=== PATIENT | male | born 1965 | race Caucasian/White ===

== ENCOUNTER 2019-05-03 21:27 | Emergency (ER) | payer OTHER ==
--- OUTSIDE RECORDS SUMMARY | 2019-05-03 21:32 | XMS REPORT ---
:1965 Author Organization eClinicalWorks Care Team Providers Name Role Phone Gordon Covarrubias Provider Role Unavailable Allergies, Adverse Reactions, Alerts Substance Reaction Event Type N.K.D.A. Info Not Available Non Drug Allergy Problems Problem Type Condition Code Onset Dates Condition Status Problem Intention tremor G25.2 Active Problem Bipolar 1 disorder F31.9 Active Assessment Intention tremor G25.2 Active Assessment Bipolar 1 disorder F31.9 Active Medications Medication Code Code Instructions Start End Status Dosage System Date Date [place] [facility] 51979853746 300 MG Oral Active TK 1 C PO Carbonate QAM AND TK 2 C PO QPM Propranolol HCl [facility] 88492695803 40 MG Orally Active 1 tablet Once a day Oxcarbazepine [facility] 54090894863 600 MG Oral Active TK 1 T PO HS Seroquel [facility] 55328277275 25 MG Orally Active 1 tablet Once a day Depakote [facility] [id number] 500 MG Orally Active as directed BID Results No Known Results Summary Purpose eClinicalWorks Submission
--- NOTE | 2019-05-03 23:14 | ER ---
Nurse's Notes [facility] Name: Shmuel Aquino Age: 53 yrs Sex: Male : 1965 Arrival Date: 05/03/2019 Time: 21:32 Bed 23 Private MD: Diagnosis: Acute upper respiratory infection, unspecified Presentation: 05/03 22:24 Presenting complaint: Patient states: cough, cold, congestion, chills for approx 1 bb week. Transition of care: patient was not received from another setting of care. Onset of symptoms was April 24, 2019. Risk Assessment: Do you want to hurt yourself or someone else? Patient reports no desire to harm self or others. Initial Sepsis Screen: Does the patient meet any 2 criteria? No. Patient's initial sepsis screen is negative. Does the patient have a suspected source of infection? No. Patient's initial sepsis screen is negative. Care prior to arrival: None. 22:24 Method Of Arrival: Ambulatory bb 22:24 Acuity: CHICHI 4 bb Historical: - Allergies: 22:28 No Known Allergies; bb - Home Meds: 22:28 Depakote ER Oral [Active]; [place] Carbonate Oral [Active]; Propranolol Oral [Active]; bb Seroquel Oral [Active]; - PMHx: 22:28 Anxiety; Depression; Bipolar disorder; bb - Immunization history:: Adult Immunizations not up to date. - Social history:: Smoking status: Patient uses tobacco products, smokes one pack cigarettes per day. - Ebola Screening: : Patient negative for fever greater than or equal to 101.5 degrees Fahrenheit, and additional compatible Ebola Virus Disease symptoms Patient denies exposure to infectious person Patient denies travel to an Ebola-affected area in the 21 days before illness onset. Screenin:00 Abuse screen: Denies threats or abuse. Nutritional screening: No deficits noted. tr5 Tuberculosis screening: No symptoms or risk factors identified. Fall Risk None identified. Assessment: 23:00 General: Appears uncomfortable, Behavior is calm, cooperative, appropriate for age. tr5 General: Reports chills for. Pain: Complains of pain in face. Neuro: Level of Consciousness is awake, alert, obeys commands, Oriented to person, place, time, Arts Administrator are equal bilaterally Moves all extremities. Cardiovascular: Heart tones present. Respiratory: Reports cough that is. GI: Abdomen is round. : No signs and/or symptoms were reported regarding the genitourinary system. EENT: No signs and/or symptoms were reported regarding the EENT system. Derm: No signs and/or symptoms reported regarding the dermatologic system. Musculoskeletal: No signs and/or symptoms reported regarding the musculoskeletal system. Vital Signs: 22:27 BP 135 / 67; Pulse 75; Resp 17; Temp 98.4; Pulse Ox 98% ; Weight 95.25 kg; Height 6 ft. bb 2 in. (187.96 cm); Pain 5/10; 22:27 Body Mass Index 26.96 (95.25 kg, 187.96 cm) bb ED Course: 21:32 Patient arrived in ED. ds1 21:44 Cary Briceno FNP-C is [facility]. kb 21:44 Leroy Silva MD is Attending Physician. kb 22:25 Triage completed. bb 22:28 Arm band placed on right wrist. bb 22:58 Freddy Meier, RN is Primary Nurse. tr5 23:38 No provider procedures requiring assistance completed. Patient did not have IV access tr5 during this emergency room visit. 23:40 Bed in low position. Call light in reach. Side rails up X 1. tr5 Administered Medications: No medications were administered Outcome: 23:14 Discharge ordered by . kb 23:38 Discharged to home ambulatory. tr5 23:38 Condition: stable 23:38 Discharge instructions given to patient, family, Instructed on discharge instructions, follow up and referral plans. Demonstrated understanding of instructions, follow-up care. 23:40 Patient left the ED. tr5 Signatures: Cary Briceno FNP-C FNP-Ckb Sanford, Demi ds1 Gabi Stein RN RN bb Freddy Meier, DANO RN tr5
--- NOTE | 2019-05-03 23:15 | EDPHYS ---
Physician Documentation [facility] Name: Shmuel Aquino Age: 53 yrs Sex: Male : 1965 Arrival Date: 05/03/2019 Time: 21:32 Bed 23 Private MD: ED Physician Leroy Silva HPI: 05/03 23:02 This 53 yrs old Male presents to ER via Ambulatory with complaints of Cough. kb 23:02 The patient or guardian reports cough, that is intermittent, described as moderate, kb with no sputum. Onset: The symptoms/episode began/occurred 1 week(s) ago. Severity of symptoms: At their worst the symptoms were moderate, in the emergency department the symptoms are unchanged. Modifying factors: The symptoms are alleviated by nothing, the symptoms are aggravated by nothing. Associated signs and symptoms: Pertinent positives: rhinorrhea. The patient has not experienced similar symptoms in the past. The patient has not recently seen a physician. Historical: - Allergies: 22:28 No Known Allergies; bb - Home Meds: 22:28 Depakote ER Oral [Active]; [place] Carbonate Oral [Active]; Propranolol Oral [Active]; bb Seroquel Oral [Active]; - PMHx: 22:28 Anxiety; Depression; Bipolar disorder; bb - Immunization history:: Adult Immunizations not up to date. - Social history:: Smoking status: Patient uses tobacco products, smokes one pack cigarettes per day. - Ebola Screening: : Patient negative for fever greater than or equal to 101.5 degrees Fahrenheit, and additional compatible Ebola Virus Disease symptoms Patient denies exposure to infectious person Patient denies travel to an Ebola-affected area in the 21 days before illness onset. ROS: 23:00 Neck: Negative for injury, pain, and swelling, Cardiovascular: Negative for chest pain, kb palpitations, and edema, Abdomen/GI: Negative for abdominal pain, nausea, vomiting, diarrhea, and constipation, Back: Negative for injury and pain, MS/Extremity: Negative for injury and deformity, Skin: Negative for injury, rash, and discoloration, Neuro: Negative for headache, weakness, numbness, tingling, and seizure. 23:00 Constitutional: Positive for chills, fever. 23:00 ENT: Positive for rhinorrhea. 23:00 Respiratory: Positive for cough, Negative for dyspnea on exertion, hemoptysis, orthopnea, pleurisy, shortness of breath, sputum production, wheezing. Exam: 23:02 Constitutional: This is a well developed, well nourished patient who is awake, alert, kb and in no acute distress. Head/Face: Normocephalic, atraumatic. ENT: Nares patent. No nasal discharge, no septal abnormalities noted. Tympanic membranes are normal and external auditory canals are clear. Oropharynx with no redness, swelling, or masses, exudates, or evidence of obstruction, uvula midline. Mucous membranes moist. Neck: Trachea midline, no thyromegaly or masses palpated, and no cervical lymphadenopathy. Supple, full range of motion without nuchal rigidity, or vertebral point tenderness. No Meningismus. Chest/axilla: Normal chest wall appearance and motion. Nontender with no deformity. No lesions are appreciated. Cardiovascular: Regular rate and rhythm with a normal S1 and S2. No gallops, murmurs, or rubs. Normal PMI, no JVD. No pulse deficits. Respiratory: Lungs have equal breath sounds bilaterally, clear to auscultation and percussion. No rales, rhonchi or wheezes noted. No increased work of breathing, no retractions or nasal flaring. Abdomen/GI: Soft, non-tender, with normal bowel sounds. No distension or tympany. No guarding or rebound. No evidence of tenderness throughout. Skin: Warm, dry with normal turgor. Normal color with no rashes, no lesions, and no evidence of cellulitis. MS/ Extremity: Pulses equal, no cyanosis. Neurovascular intact. Full, normal range of motion. Neuro: Awake and alert, GCS 15, oriented to person, place, time, and situation. Cranial nerves II-XII grossly intact. Motor strength 5/5 in all extremities. Sensory grossly intact. Cerebellar exam normal. Normal gait. Vital Signs: 22:27 BP 135 / 67; Pulse 75; Resp 17; Temp 98.4; Pulse Ox 98% ; Weight 95.25 kg; Height 6 ft. bb 2 in. (187.96 cm); Pain 5/10; 22:27 Body Mass Index 26.96 (95.25 kg, 187.96 cm) bb MDM: 22:24 Patient medically screened. kb 23:00 Data reviewed: vital signs, nurses notes. Data interpreted: Pulse oximetry: on room air barbara is 98 %. Interpretation: normal. Counseling: I had a detailed discussion with the patient and/or guardian regarding: the historical points, exam findings, and any diagnostic results supporting the discharge/admit diagnosis, lab results, the need for outpatient follow up, a family practitioner, to return to the emergency department if symptoms worsen or persist or if there are any questions or concerns that arise at home. 05/03 22:24 Order name: Flu; Complete Time: 23:13 kb 05/03 22:24 Order name: Strep; Complete Time: 23:13 kb 05/03 23:08 Order name: Throat Culture EDMS Administered Medications: No medications were administered Disposition: 05/03/19 23:14 Discharged to Home. Impression: Acute upper respiratory infection, unspecified. - Condition is Stable. - Discharge Instructions: Upper Respiratory Infection, Adult, Qyvy-lq-[id number], Viral Respiratory Infection, [id number]-[id number]-Vtzf. - Medication Reconciliation Form, Thank You Letter, Antibiotic Education, Prescription Opioid Use form. - Follow up: Emergency Department; When: As needed; Reason: Worsening of condition. Follow up: Private Physician; When: 2 - 3 days; Reason: Recheck today's complaints, Continuance of care, Re-evaluation by your physician. Addendum: 05/11/2019 07:22 Co-signature as Attending Physician, Leroy Silva MD I agree with the assessment and c macedo plan of care. Signatures: Dispatcher [employer] EDMA Cary Briceno, MACHINE EGG WASHER-C MACHINE EGG WASHER-Ckb Leroy Silva MD MD cha Ballard, Brenda, RN RN Freddy Sharp RN RN tr5 Corrections: (The following items were deleted from the chart) 05/03 23:40 23:14 05/03/2019 23:14 Discharged to Home. Impression: Acute upper respiratory tr5 infection, unspecified. Condition is Stable. Discharge Instructions: Upper Respiratory Infection, Adult, Jisg-cy-Aivn, Viral Respiratory Infection, Qpzr-Ax-Njdu. Forms are Medication Reconciliation Form, Thank You Letter, Antibiotic Education, Prescription Opioid Use. Follow up: Emergency Department; When: As needed; Reason: Worsening of condition. Follow up: Private Physician; When: 2 - 3 days; Reason: Recheck today's complaints, Continuance of care, Re-evaluation by your physician. kb
[2019-05-04 01:01] VITALS: BP 135/67; TEMP 98.4; O2SAT 98
== END 2019-05-03 23:40 | disposition home or self-care (01) ==
LOC: ER 21:27
DX: J06.9 Acute upper respiratory infection, unspecified (principal); F31.9 Bipolar disorder, unspecified; F17.210 Nicotine dependence, cigarettes, uncomplicated
CPT/HCPCS: 87070; 87081; 87804; 99281

== ENCOUNTER 2020-01-27 12:55 | Emergency (ER) | payer OTHER ==
--- OUTSIDE RECORDS SUMMARY | 2020-01-27 12:56 | XMS REPORT | Continuity of Care Document ---
:[address] [facility] t Address [address] [place] [address] Care Team Providers Name Role Phone Unavailable Unavailable Unavailable Problems Condition Condition Condition Status Onset Resolution Last Treating Co mments Source Name Details Category Date Date Treatment Clinician Date Intention Intention Diagnosis Active C [facility] tremor tremor [facility] Bipolar 1 Bipolar [address] disorder disorder [facility] Allergies, Adverse Reactions, Alerts This patient has no known allergies or adverse reactions. Medications Ordered Filled Start Stop Current Ordering Indication Dosage Frequency Signature Comments Components Source Medication Medication Date Date Medication? Clinician (SIG) Name Name Propranolol Propranolol Yes Gordno [address] [facility] HCl HCl [facility] Depakote Depakote Yes Gordon as [facility] directed [facility] P[place]ra Piedra Yes Gordon TK [address] C [address] [facility] Carbonate Carbonate Marci QAM AND TK [facility] C PO QPM [facility] Oxcarbazepi Oxcarbazepi Yes Gordon ACKERMAN [address] [facility] ne ne Marci HS [facility] Seroquel Seroquel Yes Gordon [address] [facility]ci [facility] Procedures This patient has no known procedures. Encounters Start End Encounter Admission Attending Care Care Encounter Source Date/Time Date/Time Type Type Clinicians Facility Department ID 2019-01-20 2019-01-20 Outpatient [facility] [id number] [facility] 08:30:00 08:30:00 [facility] 2018-06-12 2018-06-12 Outpatient [facility] [id number] [facility] 09:30:00 09:30:00 [facility] Medicine Outpati ent Clinics Results This patient has no known results.
[2020-01-27 13:37] LABS: Absolute Lymphocytes (CBC) 2.7 K/uL (0.7-4.9); Basophils % 0.8 % (0-1.3); Hematocrit 46.4 % (39.6-49.0); Lymphocytes % 31.1 % (15.3-44.8); MPV 10.7 fL (7.6-11.3); RBC Red Blood Cell Count 5.29 M/uL (4.33-5.43)
[2020-01-27 13:38] LABS: Protime INR 0.93
[2020-01-27 14:00] LABS: ALT/SGPT 69 U/L (12-78); AST/SGOT 29 U/L (15-37); Albumin 3.5 g/dL (3.4-5.0); Alkaline Phosphatase 103 U/L (45-117); BUN Blood Urea Nitrogen 20 mg/dL (7-18); Bicarbonate 29 mmol/L (21-32); Bilirubin Direct 0.1 mg/dL (0-0.2); Bilirubin Total 0.5 mg/dL (0.2-1.0); Glucose Level 110 mg/dL (74-106); Magnesium 2.1 mg/dL (1.8-2.4); NT PRO-BNP 39 pg/mL (<125); Protein, Total 8.1 g/dL (6.4-8.2); Sodium Level 140 mmol/L (136-145); Troponin (Emerg Dept Use Only) < 0.02 ng/mL (0.0-0.045)
--- NOTE | 2020-01-27 14:11 | RAD REPORT ---
EXAM DESCRIPTION: RAD - Chest Single View - 01/27/2020 1:59 pm CLINICAL HISTORY: CHEST PAIN Chest pain. COMPARISON: Chest Pa And Lat (2 Views) dated 07/16/2017 FINDINGS: Portable technique limits examination quality. Calcified granuloma is present in the right apex. The lungs otherwise clear. The heart is normal in s ize. No displaced fractures. IMPRESSION: No acute intrathoracic process suspected.
--- NOTE | 2020-01-27 14:16 | ER ---
Nurse's Notes [facility] Name: Shmuel Aquino Age: 54 yrs Sex: Male : 1965 Arrival Date: 01/27/2020 Time: 12:56 Bed 8 Private MD: Diagnosis: Chest pain, unspecified Presentation: 01/26 13:04 Chief complaint: Patient states: Chest pain on/off x 1 year. Has 2 episodes in a month. ca1 Stabbing pain, SOB with CP. states, "I just got tired of having this pain so I want it checked". Denies Hx of Heart attacks. Denies Hx of injury to the chest. Coronavirus screen: Client denies travel out of the [place] in the last 14 days. At this time, the client does not indicate any symptoms associated with coronavirus-19. Ebola Screen: Patient negative for fever greater than or equal to 101.5 degrees Fahrenheit, and additional compatible Ebola Virus Disease symptoms Patient denies exposure to infectious person. Patient denies travel to an Ebola-affected area in the 21 days before illness onset. No symptoms or risks identified at this time. Initial Sepsis Screen: Does the patient meet any 2 criteria? No. Patient's initial sepsis screen is negative. Does the patient have a suspected source of infection? No. Patient's initial sepsis screen is negative. Risk Assessment: Do you want to hurt yourself or someone else? Patient reports no desire to harm self or others. Onset of symptoms was January 27, 2020. 13:04 Method Of Arrival: Ambulatory ca1 13:04 Acuity: CHICHI 3 ca1 Historical: - Allergies: 13:08 No Known Allergies; ca1 - Home Meds: 13:08 Depakote ER Oral [Active]; Propranolol Oral [Active]; quetiapine oral oral [Active]; ca1 Seroquel Oral [Active]; - PMHx: 13:08 Anxiety; Depression; Bipolar disorder; ca1 - PSHx: 13:08 None; ca1 - Immunization history:: Adult Immunizations up to date. - Social history:: Smoking status: Patient reports the use of cigarette tobacco products, smokes two packs cigarettes per day. Screenin:10 Abuse screen: Denies threats or abuse. Denies injuries from another. Nutritional jl7 screening: No deficits noted. Tuberculosis screening: No symptoms or risk factors identified. Fall Risk IV access (20 points). Total Mccabe Fall Scale indicates No Risk (0-24 pts). Assessment: 13:10 General: Appears in no apparent distress. uncomfortable, Behavior is calm, cooperative, jl7 appropriate for age. Pain: Complains of pain in anterior aspect of left upper chest Pain does not radiate. Pain currently is 2 out of 10 on a pain scale. at worst was 10 out of 10 on a pain scale. Pain began x 1 year Is intermittent. Neuro: Level of Consciousness is awake, alert, obeys commands, Oriented to person, place, time, situation. Cardiovascular: Patient's skin is warm and dry. Rhythm is regular. Respiratory: Airway is patent Respiratory effort is even, unlabored, Respiratory pattern is regular, symmetrical. GI: No signs and/or symptoms were reported involving the gastrointestinal system. : No signs and/or symptoms were reported regarding the genitourinary system. Derm: Skin is pink, warm \\T\\ dry. 14:10 Reassessment: ERP at bedside discussing results and POC. jl7 Vital Signs: 13:04 BP 160 / 92; Pulse 80; Resp 16 S; Temp 98.3(O); Pulse Ox 98% on R/A; Weight 117.93 kg ca1 (R); Height 6 ft. 3 in. (190.50 cm) (R); Pain 5/10; 13:40 BP 160 / 92; Pulse 79; Resp 17; Pulse Ox 98% ; jl7 14:26 BP 118 / 78; Pulse 75; Resp 15; Pulse Ox 98% ; jl7 13:04 Body Mass Index 32.50 (117.93 kg, 190.50 cm) ca1 ED Course: 12:56 Patient arrived in ED. ag5 13:06 Triage completed. ca1 13:08 Cary Briceno FNP-C is PHCP. kb 13:08 Ricardo Willingham MD is Attending Physician. kb 13:08 Arm band placed on right wrist. ca1 13:10 Patient has correct armband on for positive identification. Placed in gown. Bed in low jl7 position. Call light in reach. Side rails up X 1. dictionary editor on. Pulse ox on. NIBP on. 13:20 Initial lab(s) drawn, by me, sent to lab. EKG done, by ED staff, reviewed by Ricardo Willingham MD. Inserted saline lock: 20 gauge in right antecubital area, using aseptic technique. Blood collected. Patient maintains SpO2 saturation greater than 95% on room air. 13:26 Inderjit Petit, RN is Primary Nurse. [email or web address] 14:00 XRAY Chest (1 view) In Process Unspecified. EDMS 14:27 No provider procedures requiring assistance completed. IV discontinued, intact, jl7 bleeding controlled, No redness/swelling at site. Pressure dressing applied. Administered Medications: No medications were administered Outcome: 14:16 Discharge ordered by . kb 14:27 Discharged to home ambulatory. jl7 14:27 Condition: stable 14:27 Discharge instructions given to patient, Instructed on discharge instructions, follow up and referral plans. Demonstrated understanding of instructions, follow-up care. 14:27 Patient left the ED. [email or web address] Signatures: Dispatcher [employer] EDMA Cary Briceno, SWITCH CLEANER-C SWITCH CLEANER-Ckb Inderjit Petit RN RN jl7 Kelly Arce RN RN ca1 Samantha Gilmore 5
--- NOTE | 2020-01-27 14:17 | EDPHYS ---
Physician Documentation [facility] Name: Shmuel Aquino Age: 54 yrs Sex: Male : 1965 Arrival Date: 01/27/2020 Time: 12:56 Bed 8 Private MD: ED Physician Ricardo Willingham HPI: 01/26 14:12 This 54 yrs old Male presents to ER via Ambulatory with complaints of Chest kb Pain. 14:14 The patient or guardian reports chest pain that is located primarily in the anterior kb chest wall, left. Onset: 1 year(s) ago. The pain does not radiate. Associated signs and symptoms: Pertinent positives: shortness of breath, Pertinent negatives: abdominal pain, cough, diaphoresis, dizziness, headache, lower extremity pain, lower extremity swelling, lightheadedness, nausea, near syncope, palpitations, recent travel, syncope, vomiting. The chest pain is described as stabbing. Duration: The patient or guardian reports multiple episodes, that are intermittent, that wax and wane, with no pattern. Modifying factors: The symptoms are alleviated by nothing. the symptoms are aggravated by nothing. Severity of pain: At its worst the pain was mild moderate in the emergency department the pain has resolved. The patient has not experienced similar symptoms in the past. The patient has not recently seen a physician. Pt reports he has been having intermittent stabbing chest pain to left chest for approx 1 year. Reports he gets short of breath at times when it happens. Came to get it checked out today because it has been going on for so long. Historical: - Allergies: 13:08 No Known Allergies; ca1 - Home Meds: 13:08 Depakote ER Oral [Active]; Propranolol Oral [Active]; quetiapine oral oral [Active]; ca1 Seroquel Oral [Active]; - PMHx: 13:08 Anxiety; Depression; Bipolar disorder; ca1 - PSHx: 13:08 None; ca1 - Immunization history:: Adult Immunizations up to date. - Social history:: Smoking status: Patient reports the use of cigarette tobacco products, smokes two packs cigarettes per day. ROS: 14:06 Constitutional: Negative for fever, chills, and weight loss, Respiratory: Negative for kb shortness of breath, cough, wheezing, and pleuritic chest pain, Abdomen/GI: Negative for abdominal pain, nausea, vomiting, diarrhea, and constipation, Back: Negative for injury and pain, MS/Extremity: Negative for injury and deformity, Skin: Negative for injury, rash, and discoloration, Neuro: Negative for headache, weakness, numbness, tingling, and seizure. 14:06 Cardiovascular: Positive for chest pain, Negative for edema, orthopnea, palpitations, paroxysmal nocturnal dyspnea. Exam: 13:40 ECG was reviewed by the Attending Physician. kb 14:06 Constitutional: This is a well developed, well nourished patient who is awake, alert, kb and in no acute distress. Head/Face: Normocephalic, atraumatic. Chest/axilla: Normal chest wall appearance and motion. Nontender with no deformity. No lesions are appreciated. Cardiovascular: Regular rate and rhythm with a normal S1 and S2. No gallops, murmurs, or rubs. Normal PMI, no JVD. No pulse deficits. Respiratory: Lungs have equal breath sounds bilaterally, clear to auscultation and percussion. No rales, rhonchi or wheezes noted. No increased work of breathing, no retractions or nasal flaring. Abdomen/GI: Soft, non-tender, with normal bowel sounds. No distension or tympany. No guarding or rebound. No evidence of tenderness throughout. Skin: Warm, dry with normal turgor. Normal color with no rashes, no lesions, and no evidence of cellulitis. MS/ Extremity: Pulses equal, no cyanosis. Neurovascular intact. Full, normal range of motion. Neuro: Awake and alert, GCS 15, oriented to person, place, time, and situation. Cranial nerves II-XII grossly intact. Motor strength 5/5 in all extremities. Sensory grossly intact. Cerebellar exam normal. Normal gait. Vital Signs: 13:04 BP 160 / 92; Pulse 80; Resp 16 S; Temp 98.3(O); Pulse Ox 98% on R/A; Weight 117.93 kg ca1 (R); Height 6 ft. 3 in. (190.50 cm) (R); Pain 5/10; 13:40 BP 160 / 92; Pulse 79; Resp 17; Pulse Ox 98% ; jl7 14:26 BP 118 / 78; Pulse 75; Resp 15; Pulse Ox 98% ; jl7 13:04 Body Mass Index 32.50 (117.93 kg, 190.50 cm) ca1 MDM: 13:08 Patient medically screened. kb 14:06 Data reviewed: vital signs, nurses notes. Data interpreted: Pulse oximetry: on room air kb is 98 %. Interpretation: normal. Counseling: I had a detailed discussion with the patient and/or guardian regarding: the historical points, exam findings, and any diagnostic results supporting the discharge/admit diagnosis, lab results, radiology results, the need for outpatient follow up, a family practitioner, to return to the emergency department if symptoms worsen or persist or if there are any questions or concerns that arise at home. 01/26 13:08 Order name: Basic Metabolic Panel; Complete Time: 14:05 kb 01/26 13:08 Order name: CBC with Diff; Complete Time: 13:49 kb 01/26 13:08 Order name: LFT's; Complete Time: 14:05 kb 01/26 13:08 Order name: Magnesium; Complete Time: 14:05 kb 01/26 13:08 Order name: NT PRO-BNP; Complete Time: 14:05 kb 01/26 13:08 Order name: PT-INR; Complete Time: 13:49 kb 01/26 13:08 Order name: Troponin (emerg Dept Use Only); Complete Time: 14:05 kb 01/26 13:08 Order name: XRAY Chest (1 view); Complete Time: 14:16 kb 01/26 13:08 Order name: EKG; Complete Time: 13:09 kb 01/26 13:08 Order name: Cardiac monitoring; Complete Time: 13:37 kb 01/26 13:08 Order name: EKG - Nurse/Tech; Complete Time: 13:37 kb 01/26 13:08 Order name: IV Saline Lock; Complete Time: 13:37 kb 01/26 13:08 Order name: Labs collected and sent; Complete Time: 13:37 kb 01/26 13:08 Order name: O2 Per Protocol; Complete Time: 13:37 kb 01/26 13:08 Order name: O2 Sat Monitoring; Complete Time: 13:37 kb EC:40 Rate is 74 beats/min. Rhythm is regular. QRS [place] is Normal. SC interval is normal at kb 174 msec. QRS interval is normal at 86 msec. QT interval is normal at 382 msec. Administered Medications: No medications were administered Disposition: 14:42 Co-signature as Attending Physician, Ricardo Willingham MD I agree with the assessment and kdr plan of care. Disposition: 01/27/20 14:16 Discharged to Home. Impression: Chest pain, unspecified. - Condition is Stable. - Discharge Instructions: Nonspecific Chest Pain, [id number]. - Medication Reconciliation Form, Thank You Letter, Antibiotic Education, Prescription Opioid Use form. - Follow up: Emergency Department; When: As needed; Reason: Worsening of condition. Follow up: Private Physician; When: 2 - 3 days; Reason: Recheck today's complaints, Continuance of care, Re-evaluation by your physician. Signatures: Dispatcher [employer] EDMS Cary Briceno, SOCIAL WORK THERAPIST-C SOCIAL WORK THERAPIST-Ricardo Blair MD MD kdr Leal, Jahala RN RN jl7 Kelly Arce RN RN ca1 Corrections: (The following items were deleted from the chart) 14:27 14:16 01/27/2020 14:16 Discharged to Home. Impression: Chest pain, unspecified. jl7 Condition is Stable. Forms are Medication Reconciliation Form, Thank You Letter, Antibiotic Education, Prescription Opioid Use. Follow up: Emergency Department; When: As needed; Reason: Worsening of condition. Follow up: Private Physician; When: 2 - 3 days; Reason: Recheck today's complaints, Continuance of care, Re-evaluation by your physician. kb
[2020-01-27 14:35] VITALS: TEMP 98.3; O2SAT 98
[2020-01-27 14:37] VITALS: BP 118/78
--- NOTE | 2020-01-28 08:46 | EKG ---
Test Date: 2020-01-27 Test Time: 13:12:26 Storage Wharfage Clerk: TRACIE MEASUREMENT RESULTS: Intervals: Rate: 74 AL: 174 QRSD: 86 QT: 382 QTc: 424 [place]: P: 78 AL: 174 QRS: 85 T: 53 INTERPRETIVE STATEMENTS: Normal sinus rhythm Normal ECG Compared to ECG 07/16/2017 21:12:30 No significant changes Electronically Signed On 01-28-20 08:43:26 CDT by Lei Heller
== END 2020-01-27 14:27 | disposition home or self-care (01) ==
LOC: ER 12:55
DX: R07.9 Chest pain, unspecified (principal); F41.8 Other specified anxiety disorders; F17.210 Nicotine dependence, cigarettes, uncomplicated; F31.9 Bipolar disorder, unspecified
CPT/HCPCS: 36415; 71045; 80048; 80076; 83735; 83880; 84484; 85025; 85610; 93005; 99285

== ENCOUNTER 2020-12-05 13:42 | Emergency (ER) | payer OTHER ==
--- OUTSIDE RECORDS SUMMARY | 2020-12-05 13:45 | XMS REPORT | Continuity of Care Document ---
:1965 Author Organization [facility] t Address [address] [place] [address] Care Team Providers Name Role Phone Unavailable Unavailable Unavailable Problems Condition Condition Condition Status Onset Resolution Last Treating Co mments Source Name Details Category Date Date Treatment Clinician Date Intention Intention Diagnosis Active C [facility] tremor tremor [facility] Bipolar 1 Bipolar 1 Diagnosis [address] [facility] disorder disorder [facility] Allergies, Adverse Reactions, Alerts This patient has no known allergies or adverse reactions. Medications Ordered Filled Start Stop Current Ordering Indication Dosage Frequency Signature Comments Components Source Medication Medication Date Date Medication? Clinician (SIG) Name Name Seroquel Seroquel Yes Gordon [address] [facility] Propranolol Propranolol Yes Gordon [address] [facility] HCl HCl [facility] Depakote Depakote Yes Gordon as [facility] [place] Yes Gordon TK [address] C [address] [facility] Carbonate Carbonate Marci QAM AND TK [facility] 2 C PO QPM [facility] Oxcarbazepi Oxcarbazepi Yes Gordon ACKERMAN [address] [facility] ne ne Marci HS [facility] Procedures This patient has no known procedures. Encounters Start End Encounter Admission Attending Care Care Encounter Source Date/Time Date/Time Type Type Clinicians Facility Department ID 2019-01-20 2019-01-20 Outpatient [facility] [id number] [facility] 08:30:00 08:30:00 [facility] Medicine Medicine [facility] 2018-06-12 2018-06-12 Outpatient [facility] [id number] [facility] 09:30:00 09:30:00 t [facility] Medicine Outpati ent Clinics Results This patient has no known results.
--- NOTE | 2020-12-05 17:24 | RAD REPORT ---
EXAM DESCRIPTION: RAD - Chest Pa And Lat (2 Views) - 12/05/2020 5:04 pm CLINICAL HISTORY: COUGH Chest pain. COMPARISON: Chest Single View dated 01/27/2020; Chest Pa And Lat (2 Views) dated 07/16/2017 FINDINGS: Calcified granuloma seen in the right upper lobe. The lungs are otherwise clear. The heart is normal in size. No displaced fractures.
--- NOTE | 2020-12-05 19:17 | ER ---
Nurse's Notes [facility] Name: Shmuel Aquino Age: 54 yrs Sex: Male : 1965 Arrival Date: 12/05/2020 Time: 13:45 Bed 2 Private MD: Diagnosis: Acute upper respiratory infection, unspecified Presentation: 12/05 16:23 Chief complaint: Patient states: cough X 1 week. Coronavirus screen: Client presents iw with at least one sign or symptom that may indicate coronavirus-19. Ebola Screen: Patient negative for fever greater than or equal to 101.5 degrees Fahrenheit, and additional compatible Ebola Virus Disease symptoms Patient denies exposure to infectious person. Patient denies travel to an Ebola-affected area in the 21 days before illness onset. No symptoms or risks identified at this time. Initial Sepsis Screen: Does the patient meet any 2 criteria? No. Patient's initial sepsis screen is negative. Does the patient have a suspected source of infection? No. Patient's initial sepsis screen is negative. Risk Assessment: Do you want to hurt yourself or someone else? Patient reports no desire to harm self or others. Onset of symptoms was November 27, 2020. 16:23 Method Of Arrival: Ambulatory iw 16:23 Acuity: CHICHI 3 iw Historical: - Allergies: 16:23 No Known Allergies; iw Screenin:10 Abuse screen: Denies threats or abuse. Nutritional screening: No deficits noted. jb4 Tuberculosis screening: No symptoms or risk factors identified. Fall Risk None identified. Assessment: 19:10 General: Appears in no apparent distress. comfortable, Behavior is calm, cooperative, jb4 appropriate for age. Pain: Denies pain. Neuro: Level of Consciousness is awake, alert, obeys commands, Oriented to person, place, time, situation. Cardiovascular: Patient's skin is warm and dry. Respiratory: Reports cough that is Airway is patent Respiratory effort is even, unlabored, Respiratory pattern is regular, symmetrical. GI: No signs and/or symptoms were reported involving the gastrointestinal system. : No signs and/or symptoms were reported regarding the genitourinary system. EENT: No signs and/or symptoms were reported regarding the EENT system. Derm: Skin is intact, Skin is pink, warm \T\ dry. Musculoskeletal: Circulation, motion, and sensation intact. Range of motion: intact in all extremities. 19:25 Reassessment: Provider is aware of blood pressure. Okayed pt for discharge. Pt jb4 verbalized understanding of d/c and follow up instructions. Denies questions or concerns. Ambulated out of ED with steady gait. Vital Signs: 16:23 BP 208 / 100; Pulse 98; Resp 20 S; Temp 98.9; Pulse Ox 97% on R/A; iw ED Course: 13:45 Patient arrived in ED. mr 16:03 Leroy Garza PA is PHCP. cp 16:23 Triage completed. iw 17:04 XRAY Chest Pa And Lat (2 Views) In Process Unspecified. EDMS 19:02 Daquan Barry NP is PHCP. pm1 19:02 Ricardo Willingham MD is Attending Physician. pm1 19:10 Patient has correct armband on for positive identification. Bed in low position. Call jb4 light in reach. Side rails up X 1. 19:10 No provider procedures requiring assistance completed. Patient did not have IV access jb4 during this emergency room visit. Administered Medications: No medications were administered Outcome: 19:16 Discharge ordered by MD. pm1 19:26 Discharged to home ambulatory. jb4 19:26 Condition: stable 19:26 Discharge instructions given to patient, Instructed on discharge instructions, follow up and referral plans. medication usage, Demonstrated understanding of instructions, follow-up care, medications, Prescriptions given X 1. 19:28 Patient left the ED. jb4 Signatures: Dispatcher [employer] LOUIS FarrisVi Indy Ennis RN RN Leroy Garza PA PA cp Daquan Barry NP EMAIL DESIGNER pm1 Sandeep Soto RN RN jb4 Corrections: (The following items were deleted from the chart) 19:28 19:10 General: Appears in no apparent distress. comfortable, Behavior is calm, jb4 cooperative, appropriate for age, jb4
--- NOTE | 2020-12-05 19:17 | EDPHYS ---
Physician Documentation [facility] Name: Shmuel Aquino Age: 54 yrs Sex: Male : 1965 Arrival Date: 12/05/2020 Time: 13:45 Bed 2 Private MD: ED Physician Ricardo Willingham HPI: 12/05 16:07 This 54 yrs old Male presents to ER via Unassigned with complaints of Cough. cp 16:07 The patient or guardian reports cough, that is intermittent, with productive sputum. cp Onset: The symptoms/episode began/occurred 1 week(s) ago. Severity of symptoms: in the emergency department the symptoms are unchanged, despite home interventions. Associated signs and symptoms: Pertinent positives: rhinorrhea, sore throat, Pertinent negatives: chest pain, diarrhea, fever, vomiting. Historical: - Allergies: 16:23 No Known Allergies; iw ROS: 16:07 Eyes: Negative for injury, pain, redness, and discharge. cp 16:07 Constitutional: Negative for body aches, chills, fever, poor PO intake. 16:07 ENT: Positive for rhinorrhea, sore throat, Negative for drainage from ear(s), ear pain, difficulty swallowing, difficulty handling secretions. 16:07 Cardiovascular: Negative for chest pain, edema, palpitations. 16:07 Respiratory: Positive for cough, "sounds productive", Negative for wheezing. 16:07 Abdomen/GI: Negative for abdominal pain, vomiting, diarrhea, constipation. 16:07 Skin: Negative for rash. 16:07 Neuro: Negative for altered mental status, headache, weakness. 16:07 All other systems are negative. Exam: 16:09 Head/Face: Normocephalic, atraumatic. cp 16:09 Constitutional: The patient appears in no acute distress, alert, awake, non-toxic, well developed, well nourished. 16:09 Eyes: Periorbital structures: appear normal, Conjunctiva: normal, no exudate, no injection, Sclera: no appreciated abnormality, Lids and lashes: appear normal, bilaterally. 16:09 ENT: External ear(s): are unremarkable, Nose: is normal, Mouth: Lips: moist, Oral mucosa: moist, Posterior pharynx: Airway: no evidence of obstruction, patent, Tonsils: no enlargement, no exudate, Uvula: midline, erythema, that is mild, exudate, is not appreciated. 16:09 Neck: ROM/movement: Meningeal signs: are not present, nuchal rigidity, is not appreciated, Lymph nodes: no appreciated lymphadenopathy. 16:09 Chest/axilla: Inspection: normal, Palpation: is normal, no crepitus, no tenderness. 16:09 Cardiovascular: Rate: normal, Rhythm: regular. 16:09 Respiratory: the patient does not display signs of respiratory distress, Respirations: normal, no use of accessory muscles, no retractions, Breath sounds: bronchial sounds, that are mild, are heard diffusely, decreased breath sounds, are not appreciated, stridor, is not appreciated, + upper airway congestion. 16:09 Abdomen/GI: Inspection: abdomen appears normal, Palpation: abdomen is soft and non-tender, in all quadrants. 16:09 Back: pain, is absent, ROM is normal. Vital Signs: 16:23 BP 208 / 100; Pulse 98; Resp 20 S; Temp 98.9; Pulse Ox 97% on R/A; iw MDM: 19:04 Patient medically screened. pm1 19:15 Data reviewed: vital signs. Data interpreted: Pulse oximetry: on room air is 97 %. pm1 Interpretation: normal. Counseling: I had a detailed discussion with the patient and/or guardian regarding: the historical points, exam findings, and any diagnostic results supporting the discharge/admit diagnosis, lab results, radiology results, the need for outpatient follow up, a family practitioner, to return to the emergency department if symptoms worsen or persist or if there are any questions or concerns that arise at home. 19:15 Special discussion: I have referred the patient to see his PCP for further evaluation pm1 of high blood pressure. I discussed with the patient the need to follow-up with the PCP/specialist for the noted incidental finding on X-ray/CT scanning. smoking cessation. 12/05 16:05 Order name: Influenza Screen (a \\T\\ B); Complete Time: 19:02 cp 12/05 16:05 Order name: XRAY Chest Pa And Lat (2 Views); Complete Time: 17:29 cp 12/05 16:05 Order name: Strep; Complete Time: 19:02 cp 12/05 18:11 Order name: Throat Culture EDWV 12/05 18:51 Order name: SARS-COV-2 RT PCR; Complete Time: 19:02 EDMS Administered Medications: No medications were administered Disposition: 12/06 07:44 Co-signature as Attending Physician, Ricardo Willingham MD I agree with the assessment and kdr plan of care. Disposition Summary: 12/05/20 19:16 Discharge Ordered Location: Home pm1 Problem: new pm1 Symptoms: have improved pm1 Condition: Stable pm1 Diagnosis - Acute upper respiratory infection, unspecified pm1 Followup: pm1 - With: Emergency Department - When: As needed - Reason: Worsening of condition Followup: pm1 - With: Private Physician - When: 2 - 3 days - Reason: Recheck today's complaints, Continuance of care, Re-evaluation by your physician Discharge Instructions: - Discharge Summary Sheet pm1 - Antibiotic Resistance pm1 - Hypertension, Adult pm1 - Upper Respiratory Infection, Adult pm1 - Viral Respiratory Infection pm1 - Managing Your Hypertension pm1 Forms: - Medication Reconciliation Form pm1 - Thank You Letter pm1 - Antibiotic Education pm1 - Prescription Opioid Use pm1 Prescriptions: - Tessalon Perles 100 mg Oral Capsule - take 1 capsule by ORAL route every 8 hours As needed; 15 capsule; Refills: 0, pm1 Product Selection Permitted Signatures: Dispatcher [employer] EDWV Ricardo Willingham MD MD kdr Indy Ennis RN RN iw Leroy Garza PA PA cp Daquan Barry, ALBERT THIRD HAND pm1 Corrections: (The following items were deleted from the chart) 12/05 16:13 16:09 Respiratory: the patient does not display signs of respiratory distress, cp Respirations: normal, no use of accessory muscles, no retractions, cp 17:27 16:05 CORONAVIRUS+MR.LAB.BRZ ordered. EDWV EDMS
[2020-12-05 19:49] VITALS: BP 208/100; TEMP 98.9; O2SAT 97
== END 2020-12-05 19:28 | disposition home or self-care (01) ==
LOC: ER 13:42
DX: J06.9 Acute upper respiratory infection, unspecified (principal); Z20.822 Contact with and (suspected) exposure to COVID-19
CPT/HCPCS: 87070; 87081; 87804 ×2; 71046; U0003